=== PATIENT | female | born 1960 | race Caucasian/White ===

== ENCOUNTER 2017-05-30 16:15 | Emergency (ER) | payer BC ==
--- NOTE | 2017-05-30 16:38 | EDM.PDOC ---
ED HPI GENERAL MEDICAL PROBLEM - General Chief Complaint: ENT Problem Stated Complaint: Sinus Pressure; Eye drainage; exposure to Flu Time Seen by Provider: 05/30/17 16:18 Source of Information: Reports: Patient, RN, RN Notes Reviewed History Limitations: Reports: No Limitations - History of Present Illness INITIAL COMMENTS - FREE TEXT/NARRATIVE: Patient presents the emergency room at [facility] complaining of sinus pressure and pain, left eye drainage, and chills and rigors that she had last evening. The patient states she has been exposed to bacterial conjunctivitis. The patient states that her sinus symptoms have been occurring for almost 2 months. The patient does have a history of allergies. The patient has been taking [id number] allergy medicine without any relief. The patient denies any shortness of breath or cough. No sore throat. The patient denies any ear symptomatology except that they feel full. The patient is trying to stay well- hydrated with good by mouth fluid intake. Close family members have been sick with similar symptoms. Unknown if the patient had any fevers at home. Face Pain Score (Numeric/FACES): 2 - Related Data Allergies Allergy/AdvReac Type Severity Reaction Status Date / Time lisinopril AdvReac Cough Verified 05/30/17 16:38 Home Meds: Home Meds Hydrochlorothiazide 25 mg PO DAILY 05/30/17 [History] Losartan [Cozaar] 25 mg PO DAILY 05/30/17 [History] Simvastatin 40 mg PO DAILY 05/30/17 [History] Past Medical History Cardiovascular History: Reports: High Cholesterol, Hypertension ED ROS ENT - Review of Systems Review Of Systems: See Below Constitutional: Reports: Fever, Chills. Denies: Weakness HEENT: Reports: Eye Discharge, Rhinitis, Sinus Problem. Denies: Throat Pain Respiratory: Denies: Shortness of Breath, Cough Cardiovascular: Denies: Chest Pain, Palpitations Skin: Reports: No Symptoms Neurological: Reports: No Symptoms ED EXAM, ENT - Physical Exam Exam: See Below Exam Limited By: No Limitations General Appearance: Alert, No Apparent Distress Eye Exam: Left Eye: Conjunctival Injection Ears: TM Fluid (bilateral). No: Canal Material, Canal Swelling Nose: Clear Rhinorrhea, Nasal Discharge Mouth/Throat: Normal Inspection, Normal Oropharynx Neck: Supple Respiratory/Chest: No Respiratory Distress, Lungs Clear, Normal Breath Sounds Cardiovascular: Normal Peripheral Pulses, Regular Rate, Rhythm Neurological: Alert, Oriented Skin: Warm, Dry, Intact, Normal Color, No Rash Course - Vital Signs Last Recorded V/S: Last Vital Signs Temp 37.2 C 05/30/17 16:15 Pulse 98 05/30/17 16:15 Resp 18 05/30/17 16:15 BP 145/101 H 05/30/17 16:15 Pulse Ox 97 05/30/17 16:15 Departure - Departure Time of Disposition: 17:31 Disposition: Home, Self-Care 01 Condition: Good Clinical Impression: Bacterial conjunctivitis of left eye, Acute recurrent pansinusitis - Discharge Information Instructions: Sinusitis, Adult, Bacterial Conjunctivitis Referrals: Alexandra Anderson DO [Physician] - Forms: ED Department Discharge Additional Instructions: 1. Stay well hydrated and rest 2. Use a warm, moist compress over eyes several times a day to help promote drainage and for irritation 3. May alternate Tylenol/Advil as needed for discomfort 4. Take antibiotics for the full coarse, even if symptoms are getting better 5. Avoid any OTC cold/flu produces while on the antibiotics 6. See your Primary as symptoms warrant 7. Call with any questions/concerns related to your symptoms - Problem List Review Problem List Initiated/Reviewed/Updated: Yes
[2017-05-30] MEDS: Take Home: Azithromycin 250 MG, 2 Tab Pack PO ONE (17:34)
== END 2017-05-30 17:39 | disposition home or self-care (01) ==
LOC: VM.ED 16:15
DX: J01.41 Acute recurrent pansinusitis (principal); H10.022 Other mucopurulent conjunctivitis, left eye; E78.00 Pure hypercholesterolemia, unspecified; I10 Essential (primary) hypertension; Z88.8 Allergy status to other drugs, medicaments and biological substances; Z79.899 Other long term (current) drug therapy
CPT/HCPCS: 87804; 99283; A9270